=== PATIENT | female | born 1955 | race Caucasian/White ===

== ENCOUNTER 2017-07-11 01:03 | Emergency (ER) | payer MEDICARE, OTHER | END 2017-07-11 03:28 | disposition home or self-care (01) | LOC: FTE 01:03 | DX: L29.9 Pruritus, unspecified (principal); I12.0 Hypertensive chronic kidney disease with stage 5 chronic kidney disease or end stage renal disease; N18.6 End stage renal disease; E11.22 Type 2 diabetes mellitus with diabetic chronic kidney disease; Z79.82 Long term (current) use of aspirin | CPT/HCPCS: 99283 ==